=== PATIENT | male | born 1965 | race Caucasian/White ===

== ENCOUNTER 2017-08-30 14:59 | Emergency (ER) | payer SELFPAY ==
[2017-08-30] MEDS ORDERED: Naproxen 500 MG TAB ONE (15:31)
[2017-08-30] MEDS ORDERED: HYDROcodone/Acetaminophen 10/325 mg Tablet ONE (15:31)
[2017-08-30] MEDS ORDERED: Benzonatate 100 MG CAP ONE (15:31)
[2017-08-30] MEDS ORDERED: AMOXicillin 250 MG CAP ONE (15:33)
[2017-08-30] MEDS ORDERED: Diphenoxylate HCl/Atropine Tablet ONE (15:33)
[2017-08-30] MEDS ORDERED: Ondansetron ODT 4 MG TAB ONE (15:34)
== END 2017-08-30 16:10 | disposition home or self-care (01) ==
LOC: MADERS 14:59
DX: J20.9 Acute bronchitis, unspecified (principal); R19.7 Diarrhea, unspecified; R11.2 Nausea with vomiting, unspecified; I10 Essential (primary) hypertension; F17.220 Nicotine dependence, chewing tobacco, uncomplicated; Z79.899 Other long term (current) drug therapy
CPT/HCPCS: 87804; 99283; Q0162

== ENCOUNTER 2021-01-10 11:03 | Outpatient (CLI) | payer SELFPAY | END 2021-01-10 11:04 | disposition home or self-care (01) | LOC: MADLAB 11:03 | PROVIDERS: ATTEND Family Medicine | DX: M79.644 Pain in right finger(s) (principal) ==